=== PATIENT | male | born 1985 | race Caucasian/White ===

== ENCOUNTER 2024-01-12 10:45 | Inpatient (IN) | payer OTHER ==
[~2024-01-12] VITALS: Ht 182.9 cm; Wt 114.3 kg
[2024-01-12] MEDS ORDERED: ONDANSETRON 4 MG/2 ML VIAL ONE ×2 (11:09→11:57)
[2024-01-12] MEDS ORDERED: MORPHINE SULFATE 4 MG/1 ML DISP.SYRIN ONE (11:09)
[2024-01-12] MEDS: IV NORMAL SALINE 1000 ML BAG IV ONE ×2 (11:14→13:15)
[2024-01-12] MEDS: ONDANSETRON 4 MG/2 ML VIAL IV ONE ×2 (11:14→12:00)
[2024-01-12] MEDS: MORPHINE SULFATE 2 MG/1 ML DISP.SYRIN IV ONE (11:15)
[2024-01-12 11:25] LABS: BASOPHILS # (AUTO) 0.1 K/UL (0.0-0.2); BASOPHILS % (AUTO) 0.4 % (0.0-2.0); EOSINOPHILS # (AUTO) 0.1 K/uL (0.0-0.7); EOSINOPHILS % (AUTO) 0.7 % (0.0-7.0); HEMATOCRIT 47.7 % (36.7-47.1); HEMOGLOBIN 16.5 g/dL (12.5-16.3); LYMPHOCYTES # (AUTO) 1.8 K/uL (0.8-4.8); LYMPHOCYTES % (AUTO) 15.6 % (20.5-51.5); MEAN CORPUSCULAR HEMOGLOBIN 28.2 uug (23.8-33.4); MEAN CORPUSCULAR HGB CONC 35 g/dL (32.5-36.3); MEAN CORPUSCULAR VOLUME 81.3 fL (73.0-96.2); MONOCYTES # (AUTO) 0.7 K/uL (0.1-1.30); MONOCYTES % (AUTO) 6.1 % (0.0-11.0); NEUTROPHILS # (AUTO) 9.1 K/uL (1.8-8.9); NEUTROPHILS % (AUTO) 77.2 % (38.5-71.5); PLATELET COUNT (AUTO) 260 K/uL (152-348); RED BLOOD CELL COUNT(AUTO) 5.87 MIL/uL (4.06-5.63); RED CELL DISTRIBUTION WIDTH 13.9 % (12.1-16.2); WHITE BLOOD COUNT (AUTO) 11.8 K/uL (3.6-10.2)
[2024-01-12 11:26] LABS: DIFFERENTIAL COMMENT 1
[2024-01-12 11:42] LABS: ALBUMIN 4.5 g/dL (3.4-5.0); BILIRUBIN,DIRECT 0.2 mg/dL (0.0-0.2); BILIRUBIN,TOTAL 0.5 mg/dL (0.2-1.0); TOTAL PROTEIN, SERUM 7.9 g/dL (6.4-8.2)
[2024-01-12 13:04] LABS: LACTIC ACID 2.2 mmol/L (0.4-2.0)
[2024-01-12] MEDS ORDERED: PIPERACILLIN/TAZOBACTAM/D5W 50 ML IV ONE (13:26)
[2024-01-12] MEDS ORDERED: diphenhydrAMINE 50 MG/1 ML VIAL ONE (13:27)
[2024-01-12] MEDS ORDERED: METOCLOPRAMIDE HCL 10 MG/2 ML VIAL ONE (13:27)
[2024-01-12] MEDS: FAMOTIDINE. 20 MG/2 ML VIAL IV ONE (13:30)
[2024-01-12] MEDS: LIDOCAINE VISCUS 2% 15 ML UDC MM ONE (13:30)
[2024-01-12] MEDS: MAG HYDROX/AL HYDROX/SIMETH 30 ML LIQUID UDC PO ONE (13:30)
[2024-01-12] MEDS: METOCLOPRAMIDE HCL 10 MG/2 ML VIAL IV ONE (13:34)
[2024-01-12] MEDS: PIPERACILLIN SODIUM/TAZOBACTAM 3.375 G in IV DEXTROSE 5% 50 ML IV ONE (13:34)
[2024-01-12] MEDS: diphenhydrAMINE 50 MG/1 ML VIAL IV ONE (13:34)
[2024-01-12 14:17] LABS: *BILIRUBIN,URIN NEGATIVE (NEGATIVE); *CLARITY,URINE CLEAR (CLEAR); *COLOR,URINE YELLOW (YELLOW); *KETONES,URINE NEGATIVE (NEGATIVE); *PROTEIN,URINE NEGATIVE (NEGATIVE); *UROBILINOGEN,URINE 0.2 E.U./dl (NORMAL); LEUKOCYTE ESTERASE ,URINE NEGATIVE (NEGATIVE); NITRITE, URINE NEGATIVE (NEGATIVE); UGLUCOSE NEGATIVE (NEGATIVE)
[2024-01-12 14:20] VITALS: BP 186/111; TEMP 97.4; O2SAT 97
[2024-01-12 14:26] LABS: *BLOOD, URINE TRACE (NEGATIVE)
[2024-01-12 14:46] LABS: WBC,URINE 0-3 /HPF (0-3)
[2024-01-12] MEDS ORDERED: FLUT1DIS28 IH (14:46)
[2024-01-12] MEDS ORDERED: ALBU18HF2 IH (14:46)
[2024-01-12 17:06] VITALS: BP 116/63; O2SAT 96
[2024-01-12] MEDS ORDERED: ONDANSETRON 4 MG/2 ML VIAL IV PRN (17:15)
[2024-01-12] MEDS ORDERED: HYDROMORPHONE 1 MG/1 ML DISP.SYRIN IV PRN (17:15)
[2024-01-12] MEDS: IV 1/2NS 1000 ML 1,000 ML IV PRN (17:24)
[2024-01-12] MEDS ORDERED: ACETAMINOPHEN 325 MG TABLET PO PRN (19:00)
[2024-01-12] MEDS ORDERED: ENALAPRILAT DIHYDRATE 1.25 MG/1 ML VIAL IV PRN (19:00)
[2024-01-12 19:05] VITALS: BP 152/96; TEMP 97.9; O2SAT 96
[2024-01-12] MEDS: ZOLPIDEM 5 MG TABLET PO PRN (20:28)
[2024-01-12] MEDS ORDERED: PIPERACILLIN SODIUM/TAZOBACTAM 3.375 G in IV DEXTROSE 5% 50 ML IV SCH (22:00)
[2024-01-12] MEDS: PIPERACILLIN SODIUM/TAZOBACTAM 3.375 G in IV DEXTROSE 5% 100 ML IV SCH (23:23)
[2024-01-13 00:19] VITALS: BP 108/58; TEMP 97.6; O2SAT 93
[2024-01-13 04:30] VITALS: BP 136/97; TEMP 97.6; O2SAT 98
[2024-01-13 07:32] VITALS: BP 128/84; TEMP 98; O2SAT 96
[2024-01-13 07:45] LABS: BASOPHILS % (AUTO) 0.4 % (0.0-2.0); EOSINOPHILS # (AUTO) 0.2 K/uL (0.0-0.7); EOSINOPHILS % (AUTO) 1.5 % (0.0-7.0); HEMATOCRIT 45.7 % (36.7-47.1); HEMOGLOBIN 16.5 g/dL (12.5-16.3); LYMPHOCYTES # (AUTO) 3.7 K/uL (0.8-4.8); LYMPHOCYTES % (AUTO) 36.4 % (20.5-51.5); MEAN CORPUSCULAR HEMOGLOBIN 29.2 uug (23.8-33.4); MEAN CORPUSCULAR HGB CONC 36 g/dL (32.5-36.3); MEAN CORPUSCULAR VOLUME 80.7 fL (73.0-96.2); MONOCYTES # (AUTO) 0.8 K/uL (0.1-1.30); MONOCYTES % (AUTO) 7.9 % (0.0-11.0); NEUTROPHILS # (AUTO) 5.4 K/uL (1.8-8.9); NEUTROPHILS % (AUTO) 53.8 % (38.5-71.5); PLATELET COUNT (AUTO) 247 K/uL (152-348); RED BLOOD CELL COUNT(AUTO) 5.66 MIL/uL (4.06-5.63); RED CELL DISTRIBUTION WIDTH 13.8 % (12.1-16.2); WHITE BLOOD COUNT (AUTO) 10.1 K/uL (3.6-10.2)
[2024-01-13 07:53] LABS: DIFFERENTIAL COMMENT 1
[2024-01-13 08:13] LABS: ALBUMIN 3.7 g/dL (3.4-5.0); BILIRUBIN,TOTAL 0.8 mg/dL (0.2-1.0); CALCIUM 9.2 mg/dL (8.5-10.1); CREATININE 1.1 mg/dL (0.6-1.3); MAGNESIUM 2.1 mg/dL (1.8-2.4); PHOSPHOROUS 3.5 mg/dL (2.5-4.9); POTASSIUM 4.1 mmol/L (3.5-5.1); TOTAL PROTEIN, SERUM 7.1 g/dL (6.4-8.2)
[2024-01-13] MEDS: PANTOPRAZOLE SODIUM 40 MG VIAL IV SCH (08:37)
[2024-01-13 11:34] VITALS: BP 135/63; TEMP 98.9; O2SAT 99
[2024-01-13 15:44] VITALS: BP 119/56; TEMP 98; O2SAT 97
[2024-01-13] MEDS ORDERED: ACID1TAB4 PO (17:51)
[2024-01-13] MEDS ORDERED: ONDA4TAB5 PO (17:51)
[2024-01-13] MEDS ORDERED: PANT40TA2 PO (17:51)
== END 2024-01-13 18:52 | disposition home or self-care (01) | DRG 254 ==
LOC: ER 10:45 → MEDSURG3 14:00 → TELE3 17:08 → MEDSURG3 01-13 10:10
PROVIDERS: ADMIT Internal Medicine; ATTEND Internal Medicine
DX: K59.89 Other specified functional intestinal disorders (principal); K85.90 Acute pancreatitis without necrosis or infection, unspecified; K76.0 Fatty (change of) liver, not elsewhere classified; T36.95XA Adverse effect of unspecified systemic antibiotic, initial encounter; Y92.039 Unspecified place in apartment as the place of occurrence of the external cause; E86.0 Dehydration; K57.30 Diverticulosis of large intestine without perforation or abscess without bleeding; N20.0 Calculus of kidney; R03.0 Elevated blood-pressure reading, without diagnosis of hypertension; F12.90 Cannabis use, unspecified, uncomplicated; R11.2 Nausea with vomiting, unspecified
CPT/HCPCS: 36415; 83550; 83605; 83690; 83735; 84100; 85025; 87040; A4663; G0378; J1200; J2270; J2405; J2470; J2543; J2765; J7040